=== PATIENT | female | born 1980 | race American Indian/Alaskan Native ===

== ENCOUNTER 2016-11-08 08:35 | Emergency (ER) | payer OTHER ==
[~2016-11-08] VITALS: Ht 160 cm; Wt 57.2 kg
[~2016-11-08 08:35] MED LIST: AUGMENTIN 500M500 MG PO; VICODIN 5-3001 EACH PO
--- NOTE | 2016-11-08 09:02 | ED INFLUENZA/URI COMPLAINT ---
History of Present Illness General Chief Complaint: Upper Respiratory Sx/Fever Stated Complaint: NOSE BLEEDS, COUGH AND CONGESTION Source: patient, old records Exam Limitations: no limitations Vital Signs & Intake/Output Vital Signs & Intake/Output Vital Signs Date Time Temp Pulse Resp B/P Pulse O2 O2 Flow FiO2 Ox Delivery Rate 11/08 0908 Room Air Room Air 11/08 0838 98.5 96 16 122/80 96 Room Air Allergies Coded Allergies: MDX - Ibuprofen (IBUPROFEN) (Mild, itchy throat 02/21/16) Reconcile Medications Amoxicillin/Potassium Clav (Augmentin 875-125 Tablet) 875 MG-125 MG TABLET 1 TAB PO BID SINUSITIS Augmentin (Augmentin 500-125 Tablet) 500 MG-125 MG TABLET 1 TAB PO BID SINUSITIS Hydrocodone/Acetaminophen (Vicodin 5-300 MG Tablet) 1 EACH TABLET 1 TAB PO Q6P PRN PAIN Mometasone Furoate (Nasonex) 50 MCG SPRAY.PUMP 2 SPRAY NASB DAILY SINUS CONGESTION Triage Note: 35 Y/O FEMALE C/O URI SYMPTOMS X 3 DAYS. AFEBRILE. HX SINUS INFECTIONS. * PT STATES SHE HAD "LEFT OVER" AMOXICILLAN AND STARTED TAKING SAME WITH NO RELIEF. Triage Nurses Notes Reviewed? yes : No Patient currently breastfeeds: No HPI: Patient presents with nasal congestion and occasionally nosebleed that lasts just a few minutes over the past 3 days. Positive sinus congestion. Patient denies any headache or blurry vision. Patient is also had a reactive cough with thick green sputum and she states that occasionally she coughs up dark red blood. Patient denies any nausea or vomiting. There is no pain. Past History Travel History Traveled to [place] past 21 day No Medical History Any Pertinent Medical History? see below for history Neurological: NONE EENT: NONE Cardiovascular: NONE Respiratory: NONE Gastrointestinal: NONE Hepatic: NONE Renal: nephrolithiasis Musculoskeletal: NONE Psychiatric: NONE Endocrine: NONE Blood Disorders: NONE Cancer(s): NONE LAW CLERK/Reproductive: OVARIAN CYSTS Surgical History Surgical History: STENT IN KIDNEY (REMOVED) Psychosocial History What is your primary language Swedish Tobacco Use: Quit <30 days ago ETOH Use: occasional use Illicit Drug Use: denies illicit drug use Family History Hx Contributory? No Review of Systems Review of Systems Constitutional: Reports: see HPI, chills. EENTM: Reports: see HPI, nasal congestion, epistaxis. Respiratory: Reports: see HPI, cough, hemoptysis. Cardiovascular: Reports: no symptoms. GI: Reports: no symptoms. Musculoskeletal: Reports: no symptoms. Neurological/Psychological: Reports: no symptoms. Hematologic/Endocrine: Reports: no symptoms. Immunologic/Allergic: Reports: no symptoms. Physical Exam Physical Exam General Appearance: well developed/nourished, alert, awake, anxious, mild distress Head: atraumatic Eyes: Bilateral: PERRL, EOMI. Ears, Nose, Throat: normal ENT inspection, moist mucous membrane, nasal congestion Neck: normal inspection, supple, full range of motion Respiratory: normal breath sounds, chest non-tender, no respiratory distress, lungs clear Cardiovascular: regular rate/rhythm, normal peripheral pulses Gastrointestinal: normal bowel sounds, soft, non-tender, no organomegaly Neurologic/Psych: no motor/sensory deficits, awake, alert, oriented x 3, normal gait, normal mood/affect Core Measures Severe Sepsis Present: No Septic Shock Present: No Progress Differential Diagnosis: pneumonia, pharyngitis, sinusitis Plan of Care: Orders Procedure Date/time Status URINE 11/08 902 Complete Laboratory Tests 11/08/16 0905: Urine Test NEGATIVE Diagnostic Imaging: Viewed by Me: Radiology Read. Discussed w/RAD: Radiology Read. CXR Impression: PATIENT: DELONTE AC PRESENT AGE: 35 PATIENT ACCOUNT NO: [id number] : 80 LOCATION: [facility] ORDERING PHYSICIAN: BRENDAN AGUILERA MD SERVICE DATE: 11/08/16 EXAM TYPE: RAD - XRY-CHEST XRAY, PA AND LATERAL EXAMINATION: XR CHEST CLINICAL INFORMATION: Cough and hemoptysis. COMPARISON: Chest and left RIBS 02/21/2016 TECHNIQUE: 2 views of the chest were obtained. FINDINGS: Both lungs are well-expanded and clear of acute process. The heart size and pulmonary vascularity is normal. No gross bony abnormality seen. IMPRESSION: Unremarkable chest exam. DICTATED BY: LAURIE WADE MD DATE/TIME DICTATED:11/08/161030 INFORMATION CLERK BROKERAGE:ESTEBAN DATE/TIME TRANSCRIBED:11/08/161030 CONFIDENTIAL, DO NOT COPY WITHOUT APPROPRIATE AUTHORIZATION. <Electronically signed in Other Vendor System> SIGNED BY: LAURIE WADE MD 11/08/161034 Initial ED EKG: none Departure Departure Disposition: HOME OR SELF CARE Condition: Stable Clinical Impression Primary Impression: Sinusitis Referrals: LAKESHA STEWART MD (PCP/Family) Additional Instructions: RETURN IF SYMPTOMS WORSEN OR FOR ANY CONCERNS Departure Forms: Customer Survey General Discharge Information Prescriptions: Current Visit Scripts Amoxicillin/Potassium Clav (Augmentin 875-125 Tablet) 1 TAB PO BID #20 TAB Mometasone Furoate (Nasonex) 2 SPRAY NASB DAILY #1 INHAL
[2016-11-08] MEDS ORDERED: NASONEX17 GM NASB (10:14)
[2016-11-08] MEDS ORDERED: AUGMENTIN 875-1 EACH PO (10:14)
--- NOTE | 2016-11-08 10:35 | RADIOLOGY REPORT ---
EXAMINATION: XR CHEST CLINICAL INFORMATION: Cough and hemoptysis. COMPARISON: Chest and left RIBS 02/21/2016 TECHNIQUE: 2 views of the chest were obtained. FINDINGS: Both lungs are well-expanded and clear of acute process. The heart size and pulmonary vascularity is normal. No gross bony abnormality seen. IMPRESSION: Unremarkable chest exam.
[2016-11-08 11:17] VITALS: BP 126/84
== END 2016-11-08 11:18 ==
LOC: ERH 08:35
DX: J32.9 Chronic sinusitis, unspecified (principal)
CPT/HCPCS: 81025